=== PATIENT | male | born 1995 | race Two or more races ===

== ENCOUNTER 2017-12-15 18:22 | Emergency (ER) | payer SELFPAY ==
[~2017-12-15] VITALS: Ht 165.1 cm; Wt 69.9 kg
[2017-12-15 18:31] VITALS: BP 146/85
[2017-12-15] MEDS ORDERED: BICILLIN-LA 1,200,000 UNITS/2 ML IM ONE (19:00)
== END 2017-12-15 19:33 | disposition home or self-care (01) ==
LOC: ED 19:25
DX: J02.0 Streptococcal pharyngitis (principal)
CPT/HCPCS: 96372; 99283; J0561

== ENCOUNTER 2018-09-13 00:51 | Emergency (ER) | payer OTHER ==
[~2018-09-13] VITALS: Ht 165.1 cm; Wt 82.1 kg
[2018-09-13 01:44] VITALS: BP 142/95
== END 2018-09-13 01:46 | disposition home or self-care (01) ==
LOC: ED 01:20
DX: S01.01XD Laceration without foreign body of scalp, subsequent encounter (principal); X58.XXXD Exposure to other specified factors, subsequent encounter
CPT/HCPCS: 99281

== ENCOUNTER 2019-04-20 11:49 | Emergency (ER) | payer MEDICAID, OTHER ==
[~2019-04-20] VITALS: Ht 167.6 cm; Wt 77.8 kg
[2019-04-20 12:27] VITALS: BP 146/95
== END 2019-04-20 13:17 | disposition home or self-care (01) ==
LOC: ED 13:15
DX: K08.89 Other specified disorders of teeth and supporting structures (principal); Z88.0 Allergy status to penicillin
CPT/HCPCS: 99283

== ENCOUNTER 2019-11-05 06:23 | Emergency (ER) | payer MEDICAID ==
[~2019-11-05] VITALS: Ht 167.6 cm; Wt 81.3 kg
--- NOTE | 2019-11-05 06:55 | NUR ---
Report from Dangelo ORELLANA. Pt resting in bed, tearful, verbalizes feeling scared. Verbal reassurance provided with good effect. Pt to CT via rom at this time.
[2019-11-05] MEDS ORDERED: HYDROcodone/APAP 5/325 TABLET PO ONE (07:00)
[2019-11-05] MEDS ORDERED: DIPH,PERTUSS(ACELL),TET VAC/PF 0.5 ML IM-VACC ONE ×2 (07:00→07:02)
[2019-11-05] MEDS ORDERED: HYDROcodone/APAP 5/325 TABLET ONE (07:02)
--- NOTE | 2019-11-05 07:12 | NUR ---
Pt back from CT. Medicated per MAR and positioned for comfort in bed. Pt denies other needs.
[2019-11-05 08:00] VITALS: BP 122/70
--- NOTE | 2019-11-05 08:00 | NUR ---
Pt states pain improved after medications given, now 06/11.
== END 2019-11-05 08:02 | disposition home or self-care (01) ==
LOC: ED 07:29
DX: S00.03XA Contusion of scalp, initial encounter (principal); S00.81XA Abrasion of other part of head, initial encounter; R55 Syncope and collapse; Y08.89XA Assault by other specified means, initial encounter; Y93.89 Activity, other specified; Y92.89 Other specified places as the place of occurrence of the external cause; Y99.8 Other external cause status
CPT/HCPCS: 70450; 70486; 90471; 90715; 99285